=== PATIENT | male | born 1995 | race Caucasian/White ===

== ENCOUNTER 2017-03-25 19:42 | Observation (INO) | payer BC ==
[~2017-03-25] VITALS: Ht 180.3 cm; Wt 78.2 kg
[~2017-03-25 19:42] MED LIST: [UNRECOGNIZED DRUG - OTHER]; [UNRECOGNIZED DRUG - REMARK]
[2017-03-25 20:09] LABS: BASOPHIL COUNT 0.1 K/uL (0-0.1); EOSINOPHIL (%) 0.6 % (0-5); EOSINOPHIL COUNT 0.1 K/uL (0-0.3); HEMATOCRIT 44.8 % (38.0-50.0); IMMATURE GRANULOCYTE (%) 0.2 % (0.0-0.7); INSTRUMENT ABS NEUTROPHIL CT 4.6 K/uL; LYMPHOCYTE COUNT 4.5 K/uL (1.0-2.8); MCH 31.3 PG (29.0-34.0); MCHC 35.7 G/DL (30.0-36.0); MCV 87.5 FL (86-99); MEAN PLAT.VOLUME 9.1 uM^3 (9.0-12.4); MONOCYTE COUNT 0.7 K/uL (0-0.8); NEUTROPHIL (%) 46.5 % (45-76); NEUTROPHIL COUNT 4.6 K/uL (1.8-6.4); PLATELET COUNT 301 K/uL (156-360); RBC DIS.WIDTH-CV 11.9 % (11.8-14.6); RBC DIS.WIDTH-SD 38.4 % (39-53); RED BLOOD COUNT 5.12 M/uL (4.00-5.50); WHITE BLOOD COUNT 9.9 K/uL (4.1-10.2)
[2017-03-25 20:20] LABS: CHLORIDE 111 mEq/L (99-109); POTASSIUM 3.3 mEq/L (3.7-5.4); SODIUM 144 mEq/L (136-147)
[2017-03-25 20:22] LABS: GLUCOSE 95 mg/dL (70-99)
[2017-03-25 20:23] LABS: ANION GAP 15 MEQ/L (2-14)
[2017-03-25 20:25] LABS: SERUM ETHYL ALCOHOL 158 mg/dL
[2017-03-25 20:26] LABS: GFR ESTIMATE (CALCULATED) > 59 mL/min/
[2017-03-25 20:28] LABS: UREA NITROGEN (BUN) 7 mg/dL (9-23)
[2017-03-25 20:29] LABS: SALICYLATE < 5.0 MG/DL (15-30)
[2017-03-25 21:09] LABS: TOTAL BILIRUBIN 0.6 mg/dL (0.0-1.0)
[2017-03-25 21:10] LABS: ALKALINE PHOSPHATASE 68 IU/L (3-129)
[2017-03-25 21:12] LABS: DIRECT BILIRUBIN 0.2 mg/dL (0.0-0.3)
[2017-03-26 04:37] LABS: ADD MIUA? NO; BILIRUBIN NEGATIVE; BLOOD NEGATIVE; COLOR YELLOW ((YELLOW)); GLUCOSE (STRIP) NEGATIVE; KETONES 5; LEUKOCYTES NEGATIVE; NITRITE NEGATIVE; PROTEIN (STRIP) NEGATIVE; SPECIFIC GRAVITY 1.015 (1.000-1.030); UCUL ADDED? NO; UROBILINOGEN 0.2 MG/DL (0.2-1.0)
[2017-03-26 04:45] LABS: AMPHETAMINE NEGATIVE (500 ng/mL); BARBITURATES NEGATIVE (200 ng/mL); BENZODIAZEPINES PRESUMPTIVE POSITIVE (150 ng/mL); COCAINE NEGATIVE (150 ng/mL); INTERNAL CONTROLS VALID? YES; METHADONE NEGATIVE (200 ng/mL); METHAMPHETAMINE NEGATIVE (500 ng/mL); OPIATES (MORPHINE) NEGATIVE (100 ng/mL); OXYCODONE PRESUMPTIVE POSITIVE (100 ng/mL); PHENCYCLIDINE NEGATIVE (25 ng/mL); PROPOXYPHENE NEGATIVE (300 ng/mL); THC CANNABINOIDS PRESUMPTIVE POSITIVE (50 ng/mL); TRICYCLIC ANTIDEPRESSANTS NEGATIVE (300 ng/mL)
[2017-03-26 04:46] LABS: ADD MEDTOX COMMENT Y
[2017-03-26 05:51] VITALS: BP 129/76
[2017-03-26 05:53] LABS: BENZODIAZEPINES QUANT VALUE 0 NG/ML; BENZODIAZEPINES, URINE SCREEN Negative (200 ng/mL)
[2017-03-26 07:44] VITALS: BP 135/77
[2017-03-26 08:53] LABS: HEMATOCRIT 43.8 % (38.0-50.0); MCH 30.6 PG (29.0-34.0); MCHC 33.8 G/DL (30.0-36.0); MCV 90.5 FL (86-99); MEAN PLAT.VOLUME 9.1 uM^3 (9.0-12.4); PLATELET COUNT 255 K/uL (156-360); RBC DIS.WIDTH-CV 12.3 % (11.8-14.6); RBC DIS.WIDTH-SD 40.7 % (39-53); RED BLOOD COUNT 4.84 M/uL (4.00-5.50); WHITE BLOOD COUNT 10.8 K/uL (4.1-10.2)
[2017-03-26 09:15] LABS: ANION GAP 9 MEQ/L (2-14); CHLORIDE 109 MEQ/L (99-109); GFR ESTIMATE (CALCULATED) > 59 mL/min/; GLUCOSE 84 mg/dL (70-99); SAMPLE HEMOLYSIS CHECK 0; SAMPLE ICTERIC CHECK 0; SAMPLE LIPEMIA CHECK 0; SODIUM 143 MEQ/L (136-147); UREA NITROGEN (BUN) 6 mg/dL (9-23)
[2017-03-26 09:17] LABS: POTASSIUM 4.5 MEQ/L (3.7-5.4)
[2017-03-26] MEDS ORDERED: ZOLOFT100 MG PO (13:24)
== END 2017-03-26 15:13 | disposition home or self-care (01) ==
LOC: EME 19:42 → EDOF 03-26 00:19 → ENRESERV 03-26 00:28 → 5SOUTH 03-26 05:37
PROVIDERS: Emergency Medicine; Physician Assistant Medical
DX: T40.2X2A Poisoning by other opioids, intentional self-harm, initial encounter (principal); F10.129 Alcohol abuse with intoxication, unspecified; Y90.6 Blood alcohol level of 120-199 mg/100 ml; R11.2 Nausea with vomiting, unspecified; E87.6 Hypokalemia; R10.816 Epigastric abdominal tenderness; F43.21 Adjustment disorder with depressed mood; F63.81 Intermittent explosive disorder; F12.20 Cannabis dependence, uncomplicated; F17.210 Nicotine dependence, cigarettes, uncomplicated
CPT/HCPCS: 80048; 80076; 81003; 84999; 85025; 85027; 90837; 93005; 99281; 99285; G0378; G0480; J1650; J2060; J2405; J7030